=== PATIENT | male | born 1990 | race Caucasian/White ===

== ENCOUNTER → 2017-03-08 | Outpatient (CLI) | payer OTHER ==
[~2017-03-08] VITALS: Ht 182.9 cm; Wt 170.1 kg
[2017-03-08 12:36] VITALS: BP 123/77; PULSE 85; Ht 182.9 cm; Wt 170.1 kg
== END | disposition home or self-care (01) ==
LOC: C.NEUR 12:02
PROVIDERS: ATTEND Internal Medicine Pulmonary Disease
DX: G47.30 Sleep apnea, unspecified (principal)